=== PATIENT | male | born 1950 | race African-American/Black ===

== ENCOUNTER → 2023-03-04 | Outpatient (CLI) | payer MEDICARE, MEDICAID | END | disposition home or self-care (01) | LOC: NM 08:23 | PROVIDERS: ATTEND Internal Medicine Endocrinology, Diabetes & Metabolism | DX: M88.89 Osteitis deformans of multiple sites (principal); M19.039 Primary osteoarthritis, unspecified wrist; M19.049 Primary osteoarthritis, unspecified hand; M17.9 Osteoarthritis of knee, unspecified; M19.079 Primary osteoarthritis, unspecified ankle and foot | CPT/HCPCS: 78306; A9503 ==